=== PATIENT | female | born 1955 | race Caucasian/White ===

== ENCOUNTER → 2018-10-04 | Outpatient (CLI) | payer OTHER ==
[~2018-10-04] MED LIST: GASTROGRAFIN SOLUTION 30ML (Q9963) As Ordered ONE; ISOVUE-370 76% 100ML VIAL (Q9967) As Ordered ONE
[2018-10-04 12:47] LABS: ALBUMIN 3.3 GM/DL (3.2-5.2); ALT/SGPT 36 U/L (12-78); AMYLASE 52 U/L (25-115); BASO # 0.1 10^3/uL (0.0-0.2); BASO % 0.6 % (0.0-1.0); BILIRUBIN,TOTAL 0.6 MG/DL (0.2-1.0); BLOOD UREA NITROGEN 9 MG/DL (7-18); CALCIUM LEVEL 8.8 MG/DL (8.8-10.2); CARBON DIOXIDE LEVEL 24 MEQ/L (21-32); CHLORIDE LEVEL 107 MEQ/L (98-107); EOS # 0.1 10^3/uL (0.0-0.50); EOS % 0.8 % (0.0-3.0); GLOMERULAR FILTRATION RATE > 60.0 (>45); GLUCOSE, FASTING 109 MG/DL (70-100); HEMATOCRIT 41.3 % (36.0-47.0); HEMOGLOBIN 12.7 g/dl (12.0-15.5); LIPASE 108 U/L (73-393); LYMPH # 1.2 10^3/uL (1.5-4.5); LYMPH % 11.6 % (24.0-44.0); MEAN CORPUSCULAR HEMOGLOBIN 26.7 pg (27.0-33.0); MEAN CORPUSCULAR HGB CONC 30.8 g/dl (32.0-36.5); MEAN CORPUSCULAR VOLUME 86.8 fl (80.0-96.0); MONO # 1.2 10^3/uL (0.0-0.8); MONO % 11.1 % (0.0-5.0); NEUTROPHILS # 8.1 10^3/uL (1.8-7.7); NEUTROPHILS % 75.5 % (36.0-66.0); PLATELET COUNT, AUTOMATED 194 10^3/uL (150-450); POTASSIUM SERUM 4.2 MEQ/L (3.5-5.1); RED BLOOD COUNT 4.76 10^6/uL (4.00-5.40); SODIUM LEVEL 140 MEQ/L (136-145); TOTAL PROTEIN 7.2 GM/DL (6.4-8.2); WHITE BLOOD COUNT 10.7 10^3/uL (4.0-10.0)
--- NOTE | 2018-10-04 13:33 | REP ---
Clinical: Left lower quadrant pain. Technique: Axial contrast enhanced images from the lung bases to the pubic symphysis using oral (per protocol) and 100 ml Isovue 370 intravenous contrast material with coronal and sagittal re-formations. Findings: Mucosal thickening of the proximal/mid sigmoid colon with surrounding inflammatory stranding and underlying diverticula is consistent with acute diverticulitis. No associated bowel obstruction, perforation, drainable collection or abscess. No ascites. Remainder of the small large bowel is grossly unremarkable. Fatty infiltration to the liver without focal hepatic lesion. Spleen, pancreas, bilateral adrenal glands and kidneys are normal. Evidence of prior cholecystectomy. Further evaluation of the pelvis demonstrates normal bladder and uterus/adnexa. Abdominal aorta without aneurysm or dissection. Musculoskeletal structures demonstrate degenerative changes. Lung bases are clear. Impression: 1. Acute sigmoid diverticulitis without perforation, obstruction, or drainable collection/abscess. 2. Hepatic steatosis. 3. Evidence of prior cholecystectomy. Electronically Signed by Nam An MD 10/04/2018 01:24 P
== END ==
LOC: M RAD 11:06
PROVIDERS: ATTEND Physician Assistant Medical
DX: K57.32 Diverticulitis of large intestine without perforation or abscess without bleeding (principal); K76.0 Fatty (change of) liver, not elsewhere classified
CPT/HCPCS: 74177; 80053; 82150; 83690; 85025; Q9963; Q9967

== ENCOUNTER 2018-12-11 07:39 | Day surgery (SDC) | payer OTHER ==
[~2018-12-11] VITALS: Ht 167.6 cm; Wt 83.6 kg
[~2018-12-11 07:39] MED LIST changes: +CLAR10CA3 PO; +FLON1SPR; -GASTROGRAFIN SOLUTION 30ML (Q9963) As Ordered ONE; -ISOVUE-370 76% 100ML VIAL (Q9967) As Ordered ONE; +LEVO50TA5 PO; +LIDOCAINE 2% INJ 100 MG/5 ML SDV (FOR ANES.) As Ordered ONE; +NAPR500T6 PO; +NS 1,000 ML IV ONE; +PROPOFOL 200 MG/20 ML VIAL As Ordered ONE
[2018-12-11] MEDS ORDERED: PROPOFOL 200 MG/20 ML VIAL As Ordered ONE (08:21)
--- NOTE | 2018-12-11 08:36 | ROOR ---
Patient Name: Alyssia Carmichael Procedure Date: 12/11/2018 8:04 AM Date of : 1955 Age: 63 Room: [facility] Gender: Female Note Status: Finalized Procedure: Total Colonoscopy to Cecum Indications: Screening for colorectal malignant neoplasm Providers: Beka Foster MD Referring MD: LOLI MARTINEZ MD Requesting Provider: Medicines: Monitored Anesthesia Care Complications: No immediate complications. Procedure: Pre-Anesthesia Assessment: - The heart rate, respiratory rate, oxygen saturations, blood pressure, adequacy of pulmonary ventilation, and response to care were monitored throughout the procedure. The Colonoscope was introduced through the anus and advanced to the cecum, identified by appendiceal orifice and ileocecal valve. The colonoscopy was performed without difficulty. The patient tolerated the procedure well. The quality of the bowel preparation was excellent. Findings: The perianal and digital rectal examinations were normal. Non-bleeding internal hemorrhoids were found during retroflexion. The hemorrhoids were small and Grade I (internal hemorrhoids that do not prolapse). Scattered small-mouthed diverticula were found in the recto-sigmoid colon, sigmoid colon and descending colon. A small polyp was found in the transverse colon. The polyp was sessile. The polyp was removed with a jumbo cold forceps. Resection and retrieval were complete. The exam was otherwise without abnormality. Impression: - Non-bleeding internal hemorrhoids. - Diverticulosis in the recto-sigmoid colon, in the sigmoid colon and in the descending colon. - One small polyp in the transverse colon, removed with a jumbo cold forceps. Resected and retrieved. - The examination was otherwise normal. - The exam was otherwise normal to the cecum. Recommendation: - Patient has a contact number available for emergencies. The signs and symptoms of potential delayed complications were discussed with the patient. Return to normal activities tomorrow. Written discharge instructions were provided to the patient. - High fiber diet. - Discharge patient to home. - Continue present medications. - Repeat colonoscopy in 10 years for screening purposes. - Return to referring physician. - The findings and recommendations were discussed with the patient's family. Beka Foster MD Beka Foster MD 12/11/2018 8:36:07 AM Electronically signed by Beka Foster MD Number of Addenda: 0 Note Initiated On: 12/11/2018 8:04 AM Estimated Blood Loss: Estimated blood loss: none.
[2018-12-11 08:53] VITALS: BP 141/69
== END 2018-12-11 08:55 | disposition home or self-care (01) ==
LOC: M OPP 07:39
PROVIDERS: ATTEND Internal Medicine Gastroenterology
DX: Z12.11 Encounter for screening for malignant neoplasm of colon (principal); K64.0 First degree hemorrhoids; D12.3 Benign neoplasm of transverse colon; K57.30 Diverticulosis of large intestine without perforation or abscess without bleeding; Z79.899 Other long term (current) drug therapy; Z88.0 Allergy status to penicillin

== ENCOUNTER → 2021-11-04 | Outpatient (CLI) | payer MEDICARE, BC ==
[~2021-11-04] MED LIST changes: -LIDOCAINE 2% INJ 100 MG/5 ML SDV (FOR ANES.) As Ordered ONE; -NS 1,000 ML IV ONE; -PROPOFOL 200 MG/20 ML VIAL As Ordered ONE
[2021-11-04 17:27] LABS: FREE T4 1.29 NG/DL (0.76-1.46); THYROID STIMULATING HORMONE 1.91 uIU/ML (0.358-3.740)
== END ==
LOC: M WUC 13:17
DX: E03.9 Hypothyroidism, unspecified (principal)

== ENCOUNTER → 2022-09-23 | Outpatient (CLI) | payer MEDICARE, BC | LOC: M WHC 07:59 | PROVIDERS: ATTEND Nurse Practitioner Family | DX: Z12.31 Encounter for screening mammogram for malignant neoplasm of breast (principal) ==